=== PATIENT | male | born 1970 | race American Indian/Alaskan Native ===

== ENCOUNTER 2017-02-24 09:00 | Emergency (ER) | payer SELFPAY ==
[2017-02-24] MEDS ORDERED: NACL 0.9% 1000 ML 1,000 ML IV ONE (09:19)
[2017-02-24] MEDS ORDERED: DILAUDID IV ONE (09:19)
[2017-02-24] MEDS ORDERED: TORADOL IV ONE (09:19)
[2017-02-24] MEDS ORDERED: ZOFRAN IV ONE (09:19)
[2017-02-24 10:01] LABS: Bilirubin,Urine NEG (Negative); Blood,Urine LG (Negative); Ketones,Urine NEG (Negative); Leukocyte Esterase,Urine NEG (Negative); Mucus,Urine FEW /HPF; Nitrite,Urine NEG (Negative); Protein,Urine <15 mg/dL mg/dL (Negative); Urobilinogen,Urine < 2.0 mg/dL (<2.0)
[2017-02-24 10:03] LABS: RBC,Urine > 182.0 /HPF (0.0-6.0)
[2017-02-24] MEDS ORDERED: ROCEPHIN/NS 1 GM/50 ML 1 GM/50 ML BAG IV ONE (10:46)
--- NOTE | 2017-02-24 11:06 | Emergency Department Report ---
ED Abdominal Pain HPI - General Chief Complaint: Abdominal Pain Stated Complaint: RT FLANK PAIN Time Seen by Provider: 02/24/17 09:08 Source: patient, EMS Mode of arrival: Stretcher Limitations: No Limitations - History of Present Illness Initial Comments: 47-year-old year-old male with a past medical history kidney stones presents complaining of sudden onset of right-sided flank and right lower quadrant pain since 7 AM. Pain is intermittent, sharp, without aggravating or relieving factors. Patient is severe in intensity with associated nausea the patient denies vomiting, dysuria, or hematuria. Patient states he did have a lot of hematuria approximately 2 weeks ago but spontaneously improved. Patient has a history of kidney stones which resolved without lithotripsy in the past and history of "prostate inflammation". Severity scale (0 -10): 10 - Related Data Previous Rx's Medication Instructions Recorded Last Taken Type Ibuprofen [Motrin] 800 mg PO Q8HR PRN #30 tablet 02/24/17 Unknown Rx Oxycodone HCl/Acetaminophen 1 each PO Q6HR PRN #20 tablet 02/24/17 Unknown Rx [Percocet 7.5/325 mg] Sulfamethoxazole/Trimethoprim 1 each PO BID #100 tablet 02/24/17 Unknown Rx [Bactrim DS TAB] Tamsulosin [Flomax] 0.4 mg PO QDAY #7 cap 02/24/17 Unknown Rx Allergies Allergy/AdvReac Type Severity Reaction Status Date / Time No Known Allergies Allergy Unverified 02/24/17 09:03 ED Review of Systems ROS: Stated complaint: RT FLANK PAIN Other details as noted in HPI Comment: All other systems reviewed and negative Other: Constitutional: No fevers chills or weight loss Eyes: No eye pain visual changes or discharge ENT: No ear pain or throat pain Neck: Denies pain Respiratory: Denies cough wheezing shortness of breath Cardiovascular: Denies chest pain, palpitations, syncope GI: S for age. : Denies dysuria Musculoskeletal: Denies back pain Skin: Denies rash, lesions, erythema Neurologic: Denies headache, numbness, weakness Psychiatric: Denies suicidal ideation, hallucinations ED Past Medical Hx - Past Medical History Previous Medical History?: Yes Hx Kidney Stones: Yes - Surgical History Past Surgical History?: No - Social History Smoking Status: Never Smoker Substance Use Type: None - Medications Home Medications: Home Medications Medication Instructions Recorded Confirmed Last Taken Type Ibuprofen [Motrin] 800 mg PO Q8HR PRN #30 tablet 02/24/17 Unknown Rx Oxycodone HCl/Acetaminophen 1 each PO Q6HR PRN #20 tablet 02/24/17 Unknown Rx [Percocet 7.5/325 mg] Sulfamethoxazole/Trimethoprim 1 each PO BID #100 tablet 02/24/17 Unknown Rx [Bactrim DS TAB] Tamsulosin [Flomax] 0.4 mg PO QDAY #7 cap 02/24/17 Unknown Rx ED Physical Exam - General Limitations: No Limitations - Other Other exam information: General: No limitations, patient is alert in no acute distress Head exam: Atraumatic, normocephalic Eyes exam: Normal appearance ENT: Moist mucous membrane, normal oropharynx Neck exam: Normal inspection, full range of motion, no meningismus nontender Respiratory exam: Clear to auscultation bilateral, no wheezes, rales, crackles Cardiovascular: Normal rate and rhythm, normal heart sounds Abdomen: Soft, nondistended, and nontender, with normal bowel sounds, no rebound, or guarding Extremity: Full range of motion normal inspection no deformity Back: Normal Inspection, full range of motion, no tenderness Neurologic: Alert, oriented x3, cranial nerves intact, no motor or sensory deficit Psychiatric: normal affect, normal mood Skin: Warm, dry, intact ED Course Vital Signs 02/24/17 02/24/17 02/24/17 09:10 09:16 09:30 Temperature 97.6 F Pulse Rate 86 Respiratory 18 Rate Blood Pressure Blood Pressure 140/70 [Left] O2 Sat by Pulse 85 100 100 Oximetry 02/24/17 02/24/17 09:56 10:00 Temperature Pulse Rate 56 L Respiratory 11 L Rate Blood Pressure 147/79 Blood Pressure [Left] O2 Sat by Pulse 99 97 Oximetry - Reevaluation(s) Reevaluation #1: 02/24/17 11:05 Pain improved with the Toradol, Dilaudid, patient received a liter normal saline. Rocephin ordered for urine leukocytosis and hematuria - Consultations Consultation #1: 02/24/17 13:[address] De Anda. Recommend KUB and outpatient follow-up tomorrow. bactrim for uti ED Medical Decision Making - Lab Data Result diagrams: 02/24/17 10:39 02/24/17 10:39 Lab Results 02/24/17 02/24/17 02/24/17 Range/Units 09:40 10:39 10:39 WBC 13.3 H (4.5-11.0) K/mm3 RBC 4.93 (3.65-5.03) M/mm3 Hgb 14.8 (11.8-15.2) gm/dl Hct 45.3 (35.5-45.6) % MCV 92 (84-94) fl MCH 30 (28-32) pg MCHC 33 (32-34) % RDW 15.1 (13.2-15.2) % Plt Count 288 (140-440) K/mm3 Lymph % (Auto) 12.9 L (13.4-35.0) % [place] % (Auto) 5.0 (0.0-7.3) % Eos % (Auto) 0.2 (0.0-4.3) % Baso % (Auto) 0.6 (0.0-1.8) % Lymph # 1.7 (1.2-5.4) K/mm3 [place] # 0.7 (0.0-0.8) K/mm3 Eos # 0.0 (0.0-0.4) K/mm3 Baso # 0.1 (0.0-0.1) K/mm3 Seg Neutrophils % 81.3 H (40.0-70.0) % Seg Neutrophils # 10.8 H (1.8-7.7) K/mm3 Sodium 143 (137-145) mmol/L Potassium 4.0 (3.6-5.0) mmol/L Chloride 105.2 (98-107) mmol/L Carbon Dioxide 25 (22-30) mmol/L Anion Gap 17 mmol/L BUN 16 (9-20) mg/dL Creatinine 1.1 (0.8-1.5) mg/dL Estimated GFR > 60 ml/min BUN/Creatinine Ratio 15 % Glucose 107 H (75-100) mg/dL Calcium 9.0 (8.4-10.2) mg/dL Urine Color Yellow (Yellow) Urine Turbidity Clear (Clear) Urine pH 6.0 (5.0-7.0) Ur Specific [place] 1.009 (1.003-1.030) Urine Protein <15 mg/dl (Negative) mg/dL Urine Glucose (UA) Neg (Negative) mg/dL Urine Ketones Neg (Negative) mg/dL Urine Blood Lg (Negative) Urine Nitrite Neg (Negative) Urine Bilirubin Neg (Negative) Urine Urobilinogen < 2.0 (<2.0) mg/dL Ur Leukocyte Esterase Neg (Negative) Urine WBC (Auto) 22.0 H (0.0-6.0) /HPF Urine RBC (Auto) > 182.0 (0.0-6.0) /HPF U Epithel Cells (Auto) < 1.0 (0-13.0) /HPF Urine Mucus Few /HPF Urine Yeast (Budding) 2+ /HPF - Radiology Data Radiology results: report reviewed CT abdomen and pelvis noncontrast: Multiple scattered bilateral renal stones. 3 stones in the right ureter 4.8 mm, 4 mm, and the most distal is 6 mm at the UVJ mild hydronephrosis. Ill-defined liver densities likely cavernous hemangiomas compared to previous. No acute process - Medical Decision Making Patient be discharged medications for UTI and renal colic. Outpatient follow- up with urology tomorrow recommended - Differential Diagnosis renal colic, appendicitis, diverticulitis, Critical Care Time: No Critical care attestation.: If time is entered above; I have spent that time in minutes in the direct care of this critically ill patient, excluding procedure time. ED Disposition Clinical Impression: Renal colic on right side, Bilateral nephrolithiasis, UTI (urinary tract infection) Disposition: DC- TO HOME OR SELFCARE Is pt being admited?: No Does the pt Need Aspirin: No Condition: Stable Instructions: Kidney Stones (ED), Urinary Tract Infection in Women (ED) Additional Instructions: Take the medication as prescribed. Return if symptoms worsen. Follow-up with Dr. De Anda in the office tomorrow. Prescriptions: Ibuprofen [Motrin] 800 mg PO Q8HR PRN #30 tablet PRN Reason: Pain Oxycodone HCl/Acetaminophen [Percocet 7.5/325 mg] 1 each PO Q6HR PRN #20 tablet PRN Reason: Pain Sulfamethoxazole/Trimethoprim [Bactrim DS TAB] 1 each PO BID #100 tablet Tamsulosin [Flomax] 0.4 mg PO QDAY #7 cap Referrals: JACK DE ANDA MD [Staff Physician] - 02/25/17 (call early tomorrow for time to be seen) Time of Disposition: 14:28
--- NOTE | 2017-02-24 11:10 | Cat Scan Report ---
CT OF THE ABDOMEN AND PELVIS WITHOUT CONTRAST HISTORY: Right flank pain. TECHNIQUE: Helical CT without contrast. Sagittal and coronal reformatted images. FINDINGS: Mild right hydronephrosis is identified. A 4.8 mm right ureteral stone is noted at the level of L5 on image 254. A 4 mm right ureteral stone is noted just before the right UVJ. A 6 mm stone is identified along the intramural portion of the right UVJ. Scattered bilateral renal stones are identified. The largest stone measures 2.5 x 1.0 cm at the inferior pole of the left kidney. No left ureteral stones. The bladder and prostate gland are unremarkable. The liver is normal size and attenuation. A 4.8 cm hypodense left hepatic lobe lesion is identified. A 5.1 cm hypodense right hepatic lobe lesion is identified. These appear to be essentially unchanged since the CT abdomen and pelvis with and without contrast report dated 08/03/10 and presumably represent hemangiomas. The images could not be obtained. The biliary system, pancreas, spleen, adrenal glands, aorta, bowel loops and appendix are unremarkable. No evidence for acute inflammatory changes, adenopathy or free air. No suspicious bony lesion. The lung bases are clear. Heart size is normal. IMPRESSION: Bilateral nephrolithiasis as described. 3 ureteral stones are identified on the right side with mild right hydronephrosis. Ill-defined liver hypodensities are incompletely evaluated on noncontrast CT but appear to represent cavernous hemangiomas as noted in a CT report from 2010. No acute inflammatory process appreciated.
[2017-02-24 11:14] LABS: Anion Gap 17 mmol/L; BUN/Creatinine Ratio 15; Basophils % (Auto) 0.6 % (0.0-1.8); Blood Urea Nitrogen 16 mg/dL (9-20); Carbon Dioxide 25 mmol/L (22-30); Chloride 105.2 mmol/L (98-107); Eosinophils % (Auto) 0.2 % (0.0-4.3); Glucose 107 mg/dL (75-100); Hematocrit 45.3 % (35.5-45.6); Hemoglobin 14.8 gm/dl (11.8-15.2); Mean Corpuscular HGB Conc 33 % (32-34); Mean Corpuscular Hemoglobin 30 pg (28-32); Mean Corpuscular Volume 92 fl (84-94); Platelet Count 288 K/mm3 (140-440); Red Blood Count 4.93 M/mm3 (3.65-5.03); Red Cell Distribution Width 15.1 % (13.2-15.2); Sodium 143 mmol/L (137-145); White Blood Count 13.3 K/mm3 (4.5-11.0)
--- NOTE | 2017-02-24 15:01 | XRay Report ---
SUPINE KUB: History: Right renal colic. The abdominal gas pattern is unremarkable. No masses or organomegaly is identified and there is no gross evidence of free air or fluid. No significant soft tissue calcifications are noted. IMPRESSION: Unremarkable abdomen. No nephrolithiasis is appreciated on x-ray.
[2017-02-24 15:13] VITALS: BP 137/76
== END 2017-02-24 15:16 | disposition home or self-care (01) ==
LOC: ED 09:00
DX: N23 Unspecified renal colic (principal); N20.0 Calculus of kidney; N39.0 Urinary tract infection, site not specified
CPT/HCPCS: 36415; 74000; 74176; 80048; 81001; 85025; 87086; 96361; 96365; 96375; 99285; J0696; J1170; J1885; J2405; J7030

== ENCOUNTER 2020-12-02 10:11 | Outpatient (CLI) | payer OTHER ==
[2020-12-02 11:12] LABS: Alanine Aminotransferase 22 units/L (7-56); Albumin 4.2 g/dL (3.9-5); BUN/Creatinine Ratio 13; Blood Urea Nitrogen 18 mg/dL (9-20); Calcium 9.8 mg/dL (8.4-10.2); Hemolysis Index 9
== END 2020-12-02 10:12 | disposition home or self-care (01) ==
LOC: LAB 10:11
PROVIDERS: ATTEND Internal Medicine
DX: Z02.71 Encounter for disability determination (principal); I12.9 Hypertensive chronic kidney disease with stage 1 through stage 4 chronic kidney disease, or unspecified chronic kidney disease; N18.30 Chronic kidney disease, stage 3 unspecified; E66.09 Other obesity due to excess calories
CPT/HCPCS: 36415; 80053